=== PATIENT | male | born 1950 | race Caucasian/White ===

== ENCOUNTER → 2019-05-02 | Day surgery (SDC) | payer MEDICARE, BC ==
[2019-04-27 09:27] LABS: BASOPHILS # (AUTO) 0.1 (0.0-0.1); BASOPHILS % 1.3 % (0.0-1.0); EOSINOPHILS # (AUTO) 0.4 (0.0-0.4); EOSINOPHILS % 5.3 % (0.0-6.0); HEMATOCRIT 39.3 % (38.2-49.6); LYMPHOCYTES % 27.1 % (18.0-39.1); MEAN CORPUSCULAR HEMOGLOBIN 31.5 pg (28-32); MEAN CORPUSCULAR HGB CONC 33.1 g/dL (31-35); MEAN CORPUSCULAR VOLUME 95.2 fL (81-99); MONOCYTES # (AUTO) 0.6 (0.2-0.8); MONOCYTES % 7.9 % (4.4-11.3); NEUTROPHILS # (AUTO) 4.2 (2.1-6.9); NEUTROPHILS % 57.8 % (38.7-80.0); PLATELET COUNT 227 x10e3/uL (140-360); RED BLOOD COUNT 4.13 x10e6/uL (4.3-5.7); RED CELL DISTRIBUTION WIDTH 14.6 % (11.7-14.4)
[~2019-05-02] MED LIST: ALLOPURINOL300 MG PO; AMLODIPINE BESYL5 MG PO; ASPIR 8181 MG PO; CENTRUM SILVER1 EAC3 PO; COQ-1030 MG PO; FENTANYL CITRATE/PF 100MCG/2 ML INJ ONE; GLUCAGON FOR INJ 1 MG VIAL ONE; GLUCOSAMINE &1 EACH PO; HYOSCYAMINE 0.125 MG TAB ONE; IRON PO; LIDOCAINE HCL 2% LOCAL INJ 5 ML SDV VIAL INJ ONE; LISINOPRIL-HCT1 EACH PO; LISINOPRIL10 MG PO; Lisinopril/Hctz PO; METFORMIN HCL500 MG PO; MIDAZOLAM HCL 2 MG/2 ML VIAL ONE; OZEMPIC1 MG/0.75 SC; Omeprazole PO; PROPOFOL IV EMULSION 10 MG/ML 50 ML VIAL ONE; SIMVASTATIN20 MG PO; VIAGRA100 MG PO
--- OUTSIDE RECORDS SUMMARY | 2019-05-02 14:24 | XMS REPORT ---
Author Author [facility] Address Unknown Phone Unavailable Care Team Providers Care Technology Resource Teacher Name Role Phone Ez Villanueva Unavailable Unavailable Problems This patient has no known problems. Allergies, Adverse Reactions, Alerts This patient has no known allergies or adverse reactions. Medications This patient has no known medications. Encounters Start Date/Time End Date/Time Encounter Type Admission Type Attending Clinicians Care Facility Care Department Encounter ID 2018-09-23 16:03:00 2018-09-23 16:03:00 Outpatient [id number] Results Test Description Test Time Test Comments Text Results Atomic Results Result Comments Parathyroid planar imaging (including subtraction; with tomographic (SPECT) 2018-10-15 09:21:24 CLINICAL INDICATION: E21.3 Hyperparathyroidism, unspecifiedMODALITY: Discovery NM/CT 670TECHNIQUE: 20.0 mCi technetium 99m sestamibi are injected IV. Immediate planar, delayed planar and delayed SPECT CT Fusion imaging of the neck were performed. Diagnostic quality CT images are obtained without IV contrast.Computed Tomography Dose Index: 8.36 mGy.FINDINGS:COMPARISON: Current diagnostic quality CT helical images.The thyroid is symmetric in appearance. No parathyroid nodule is demonstrated.Physiologic activity is demonstrated within the thyroid gland. Physiologic activity is noted within regional salivary glands as well as the heart. No pathologic mediastinal abnormalities are present.On delayed images, homogeneous washout is observed. No parathyroid adenoma is depicted.SPECT imaging is similarly unremarkable.IMPRESSION:No visualized parathyroid adenoma.
--- OUTSIDE RECORDS SUMMARY | 2019-05-02 14:24 | XMS REPORT | Summary of Care ---
Author Author JEREMIAS Sofia, REG Organization Unknown Address Unknown Phone Unavailable Care Team Providers Care Hay Buckler Name Role Phone REG MCDOWELL M.D. Unavailable Unavailable IKE KEEN DO Unavailable Unavailable Unavailable Unavailable Functional Status Name Dates Details Functional status health issues are not documented Status: Name Dates Details Cognitive status health issues are not documented Status: Problems Name Dates Details Fracture of head of left femur (820.09, S72.052A) Status: Active Insufficiency fracture of femur (733.14, M84.453A) Status: Active Insufficiency fracture of femur, left, initial encounter (733.14, M84.452A) Status: Active Medications Name Dates Details Medications not documented Allergies and Adverse Reactions Name Dates Details Allergy history not documented Status: Procedures Procedure Dates Details Procedures not documented Immunization Name Dates Details Immunizations not documented Social History Name Dates Details Unknown if ever smoked Vital Signs Date Test Result Details No Known Vitals to report Results Date Description Value Details [id number] [U] XRAY HIP UNILATERAL MIN 2 VWS LEFT [id number] XR HIP UNILATERAL MIN 2 VWS LEFT Images acquired, not reported on this accession number. Plan of Care Name Dates Details Planned Observations Planned Goals not documented Interventions Provided Labs/Procedures/Imaging* [U] XRAY HIP UNILATERAL MIN 2 VWS LEFT [id number]; Done: 10 Oct 2017 Instructions Name Dates Details Instructions not documented Encounters Appointment; REG MCDOWELL M.D. Encounter Diagnosis: Problem not documented On: 10-Oct-2017 8:15
--- NOTE | 2019-05-02 20:11 | Operative Report ---
DATE OF PROCEDURE: 05/02/2019 SURGEON: Spike Spence MD PROCEDURES: EGD with polypectomy and biopsies and colonoscopy with polypectomy. INDICATIONS FOR EGD: Dyspepsia. INDICATIONS FOR COLONOSCOPY: Colorectal cancer screening. MEDICATIONS: The patient was done under MAC, please see anesthesiologist's note. PROCEDURE IN DETAIL: With the patient in the left lateral decubitus position, a flexible fiberoptic Olympus gastroscope was introduced into the esophagus under direct visualization without any difficulty. There was some patchy erythema noted in distal esophagus. A minute tongue of velvety red mucosa was noted to extend proximally from the GE junction that was biopsied to rule out Ontiveros. The scope was then advanced with ease into the stomach and two large pedunculated polypoid lesions were noted to arise from just lateral to the cardia, both approximately 2.2 cm in size, biopsies were obtained. An approximately 1.2 cm pedunculated polyp was noted in the proximal body lesser curvature that was removed per snare electrocautery. Biopsies were obtained from the antrum and the body and sent to stain for H. pylori. Pylorus was of normal contour and shape. It was intubated with ease and the scope was advanced all the way to the second portion of the duodenum. The scope was then withdrawn slowly and the prominent folds noted in the proximal second portion and that was biopsied. The mucosa overlying the duodenal bulb appeared to be within normal limits. The scope was then withdrawn back into the stomach and retroflexed and previously described large pedunculated polypoid lesion were also noted. The scope was then straightened out, it was subsequently withdrawn, and the patient tolerated the procedure well. IMPRESSION: 1. Distal esophagitis. 2. Rule out Ontiveros esophagus. 3. Gastritis, biopsied, biopsies sent to stain for Helicobacter pylori. 4. Large pedunculated polypoid lesions, approximately 2.2 cm in size arising from just lateral to the cardia. Biopsies were obtained. 5. Approximately 1.2 cm pedunculated polyp proximal body lesser curvature removed per snare electrocautery. 6. Prominent fold proximal second portion, biopsied. PLAN: Follow up histology. Increase omeprazole to 40 mg 1 p.o. before meals b.i.d. If biopsies of the large polypoid lesions in the stomach turning machine operator to be benign, then we will proceed with a repeat EGD with polypectomy with General surgery standby. The patient was then turned around and after adequate lubrication of the anal canal, a flexible fiberoptic Olympus colonoscope was inserted into the rectum with ease and advanced all the way to the cecum. An approximately 8 mm sessile polyp was removed per snare electrocautery from the cecum and site was hemoclipped x2. Four polyps were cold snared and one polyp was hot biopsied from the ascending colon. One polyp was hot snared from the transverse colon. One polyp was hot snared and one polyp was removed per the cold polypectomy snare in the descending colon. The sigmoid and the rectum grossly were within normal limits. The scope was then retroflexed into the distal rectum and small internal hemorrhoids were noted, none of which was actively bleeding. The scope was then straightened out, it was subsequently withdrawn, and the patient tolerated the procedure well. IMPRESSION: 1. Cecal polyp, hot snared, site hemoclipped x2. 2. Ascending colon polyps x5, four cold snared and one hot biopsied. 3. Transverse colon polyp x1, hot snared. 4. Descending colon polyps x2, one hot snared and one cold snared. 5. Internal hemorrhoids, none actively bleeding. PLAN: Follow up histology. Initiate high-fiber, low-fat diet. Initiate high-fiber supplement. The patient might benefit from a followup colonoscopy in 3 years. MD ODILIA Rivas/SOFIYA /[id number] cc: Miguel Polanco DO
== END | disposition home or self-care (01) ==
LOC: OR 14:20
PROVIDERS: ATTEND Internal Medicine Gastroenterology
DX: K21.0 Gastro-esophageal reflux disease with esophagitis (principal); R10.13 Epigastric pain; K29.70 Gastritis, unspecified, without bleeding; K31.7 Polyp of stomach and duodenum; K64.8 Other hemorrhoids; K29.80 Duodenitis without bleeding; D12.2 Benign neoplasm of ascending colon; D12.0 Benign neoplasm of cecum; D12.4 Benign neoplasm of descending colon; D12.3 Benign neoplasm of transverse colon; Z01.810 Encounter for preprocedural cardiovascular examination; Z01.812 Encounter for preprocedural laboratory examination; E05.90 Thyrotoxicosis, unspecified without thyrotoxic crisis or storm; I10 Essential (primary) hypertension; E78.5 Hyperlipidemia, unspecified; E11.9 Type 2 diabetes mellitus without complications; E78.00 Pure hypercholesterolemia, unspecified; Z79.84 Long term (current) use of oral hypoglycemic drugs
CPT/HCPCS: 36415 ×2; 43239; 45380; 45384; 45385; 82948; 85025; 88305; 88312; 93005; J1610; J2001; J2250; J2704; J3010; 43251; 45378

== ENCOUNTER → 2020-10-15 | Day surgery (SDC) | payer BC, MEDICARE ==
[2020-10-12 13:04] LABS: BASOPHILS # (AUTO) 0.1 (0.0-0.1); EOSINOPHILS # (AUTO) 0.2 (0.0-0.4); EOSINOPHILS % 1.6 % (0.0-6.0); HEMATOCRIT 41.7 % (38.2-49.6); HEMOGLOBIN 13.7 g/dL (14.0-18.0); LYMPHOCYTES # (AUTO) 1.7 (1.0-3.2); LYMPHOCYTES % 16.9 % (18.0-39.1); MEAN CORPUSCULAR HEMOGLOBIN 32.7 pg (28-32); MEAN CORPUSCULAR HGB CONC 32.9 g/dL (31-35); MEAN CORPUSCULAR VOLUME 99.5 fL (81-99); MONOCYTES # (AUTO) 0.9 (0.2-0.8); MONOCYTES % 8.8 % (4.4-11.3); NEUTROPHILS # (AUTO) 7.2 (2.1-6.9); NEUTROPHILS % 71.4 % (38.7-80.0); PLATELET COUNT 199 x10e3/uL (140-360); RED BLOOD COUNT 4.19 x10e6/uL (4.3-5.7); RED CELL DISTRIBUTION WIDTH 13.9 % (11.7-14.4)
[~2020-10-15] MED LIST changes: -GLUCAGON FOR INJ 1 MG VIAL ONE; -HYOSCYAMINE 0.125 MG TAB ONE; +METOCLOPRAMIDE HCL 10 MG/2ML VIAL ONE; +PANTOPRAZOLE 40 MG 10ML VIAL ONE; +PROPOFOL IV EMULSION 10 MG/ML 20 ML VIAL ONE; -PROPOFOL IV EMULSION 10 MG/ML 50 ML VIAL ONE; +SODIUM CHLORIDE 0.9% 50ML 50 ML ONE; +VIT C PO
== END | disposition home or self-care (01) ==
LOC: OR 06:05
PROVIDERS: ATTEND Internal Medicine Gastroenterology
DX: K31.7 Polyp of stomach and duodenum (principal); K29.50 Unspecified chronic gastritis without bleeding; K20.90 Esophagitis, unspecified without bleeding; K21.9 Gastro-esophageal reflux disease without esophagitis; B96.81 Helicobacter pylori [H. pylori] as the cause of diseases classified elsewhere; I10 Essential (primary) hypertension; E11.9 Type 2 diabetes mellitus without complications; E78.5 Hyperlipidemia, unspecified; Z01.810 Encounter for preprocedural cardiovascular examination; Z01.812 Encounter for preprocedural laboratory examination; Z20.822 Contact with and (suspected) exposure to COVID-19
CPT/HCPCS: 36415 ×2; 43251; 82948; 85025; 93005; C9113; J2001; J2250; J2704; J2765; J3010; U0002; 43239